=== PATIENT | female | born 1940 | race Hispanic/Latino ===

== ENCOUNTER 2018-12-24 00:49 | Emergency (ER) | payer OTHER ==
[2018-12-24] MEDS ORDERED: ACETAMINOPHEN EXTRA STRENGTH 500 MG TABLET ONE (01:06)
== END 2018-12-24 02:25 | disposition home or self-care (01) ==
LOC: EDH 00:49
DX: S16.1XXA Strain of muscle, fascia and tendon at neck level, initial encounter (principal); S50.02XA Contusion of left elbow, initial encounter; I10 Essential (primary) hypertension; E78.5 Hyperlipidemia, unspecified; E07.9 Disorder of thyroid, unspecified; Z98.51 Tubal ligation status; V59.59XA Passenger in pick-up truck or van injured in collision with other motor vehicles in traffic accident, initial encounter; Y93.89 Activity, other specified; Y92.89 Other specified places as the place of occurrence of the external cause; Y99.8 Other external cause status
CPT/HCPCS: 72125; 73070